=== PATIENT | female | born 1955 | race Caucasian/White ===

== ENCOUNTER 2021-08-04 07:27 | Outpatient (CLI) | payer OTHER ==
[2021-08-04 17:43] LABS: Creatinine, Urine 96.26 mg/dL (47-110)
== END 2021-08-04 07:28 | disposition home or self-care (01) ==
LOC: MADULT 07:27
PROVIDERS: ATTEND Internal Medicine Nephrology
DX: N18.9 Chronic kidney disease, unspecified (principal)
CPT/HCPCS: 76770; 82570; 84156